=== PATIENT | female | born 2000 | race Two or more races ===

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

== ENCOUNTER 2018-10-11 07:11 | Emergency (ER) | payer MEDICAID, BC ==
[~2018-10-11] VITALS: Ht 160 cm; Wt 49.9 kg
[2018-10-11 07:15] VITALS: BP 122/81
[2018-10-11 07:48] LABS: APPEARANCE,URINE Clear (CLEAR); BILIRUBIN,URINE Negative (NEGATIVE); BLOOD, URINE Negative Ery/uL (NEGATIVE); COLOR,URINE Yellow (YELLOW); KETONES,URINE Negative (NEGATIVE); LEUKOCYTE ESTERASE ,URINE Negative (NEGATIVE); NITRITE, URINE Negative (NEGATIVE); PROTEIN,URINE Negative (NEGATIVE); UGLUCOSE Negative (NEGATIVE); UROBILINOGEN,URINE 0.2 EU/dL (0.2)
--- NOTE | 2018-10-11 08:27 | NUR ---
For discharge-Aftercare Instructions given Home ambulatory Stable
== END 2018-10-11 08:29 | disposition home or self-care (01) ==
LOC: ER 07:14
DX: M54.6 Pain in thoracic spine (principal); R06.02 Shortness of breath
CPT/HCPCS: 71045-TC; 81000-TC; 84703-TC

== ENCOUNTER 2019-02-04 09:38 | Emergency (ER) | payer MEDICAID, BC ==
[~2019-02-04] VITALS: Ht 160 cm; Wt 52.2 kg
--- NOTE | 2019-02-04 09:44 | NUR ---
BIB SELF 18 YEAR OLD FEMALE C/O PARONYCHIA TO L 4TH DIGIT. ALERT AND ORIENTED X4 BREATHING EVEN AND UNLABORED WITH NO DISTRESS NOTED. SKIN INTACT AND WARM TO TOUCH. AWAITING TO BE SEEN BY MD.
--- NOTE | 2019-02-04 09:58 | NUR ---
Patient discharged to home in stable condition. Written and verbal after care instructions given. Patient verbalizes understanding of instruction.
[2019-02-04 09:59] VITALS: BP 122/77
== END 2019-02-04 10:00 | disposition home or self-care (01) ==
LOC: ER 09:40
DX: L03.012 Cellulitis of left finger (principal)